=== PATIENT | female | born 1950 ===

== ENCOUNTER → 2020-08-20 14:24 | Outpatient (CLI) | payer OTHER, SELFPAY ==
--- NOTE | ~2020-08-20 | MR_ITS ---
EXAMINATION: MR brain/brain stem wo/w con DATE: 08/20/2020 15:14 INDICATION: Left facial weakness. TECHNIQUE: Magnetic resonance imaging (MRI) of the brain and brainstem was performed without and with 20 mL MultiHance intravenous contrast. Sequences included sagittal and axial T1-weighted FSE, axial diffusion-weighted FS EPI, axial T2*-weighted GRE, axial T2-weighted FLAIR Propeller, and axial T2-we ighted Propeller. Postcontrast sequences included axial and coronal T1-weighted FSE. Apparent diffusi on coefficient (ADC) maps were created. COMPARISON: None. FINDINGS: There are scattered areas of nonspecific increased T2-weighted signal intensity in the cere bral white matter, which is within normal limits for the patient's age. There is no intracranial hemo rrhage, acute infarction, or abnormal intracranial mass lesion. The ventricles are normal in size. Th e paranasal sinuses are clear. The orbits are normal. The mastoid air cells are normal. IMPRESSION: 1. Normal aging brain. Reviewed, dictated and finalized at location A. IMPRESSION: 1. Normal aging brain.
[2020-08-20 15:02] LABS: Estimated Glomerular Filt Rate > 60
== END ==
PROVIDERS: PCP Student in an Organized Health Care Education/Training Program; Visit Provider Student in an Organized Health Care Education/Training Program
DX: R29.810 Facial weakness (principal); H93.12 Tinnitus, left ear; R25.9 Unspecified abnormal involuntary movements
CPT/HCPCS: 70553; A9577

== ENCOUNTER 2020-08-24 16:18 | Outpatient (CLI) | payer OTHER, SELFPAY ==
--- NOTE | ~2020-08-24 | US_ITS ---
EXAMINATION: US carotid duplex BI DATE: 08/24/2020 16:58 INDICATION: Left facial weakness TECHNIQUE: Grayscale, color Doppler, and pulsed Doppler images of the cervical carotid arteries were obtained. The degree of vessel stenosis is placed in one of the following categories: normal, <50%, 5 0-69%, >=70% but less than near-occlusion, near-occlusion, or total occlusion. Note that percent sten osis relative to normal distal artery lumen diameter is indirectly measured from velocity measurement s as described by Alf, et al. Radiology 2003; [id number]:[id number]. COMPARISON: None. FINDINGS: RIGHT: The right common carotid artery (CCA) peak systolic velocity (PSV) is 117 cm/s. The right internal ca rotid artery (ICA) PSV is 96 cm/s. The right ICA end-diastolic velocity (EDV) is 27 cm/s. The right I CA/CCA PSV ratio is 0.8. Grayscale and color Doppler images yield an estimate of less than 50% diamet er reduction from plaque in the ICA. The external carotid artery (ECA) PSV is 53 cm/s. There is anteg rade flow in the right vertebral artery. LEFT: The left CCA PSV is 91 cm/s. The left ICA PSV is 95 cm/s. The left ICA EDV is 36 cm/s. The left ICA/C CA PSV ratio is 1.0. Grayscale and color Doppler images yield an estimate of less than 50% diameter r eduction from plaque in the ICA. The ECA PSV is 122 cm/s. There is antegrade flow in the left vertebr al artery. IMPRESSION: 1. <50% stenosis in the right internal carotid artery. 2. <50% stenosis in the left internal carotid artery. Reviewed, dictated and finalized at location A.
== END 2020-08-24 16:19 | disposition home or self-care (01) ==
PROVIDERS: PCP Student in an Organized Health Care Education/Training Program; Visit Provider Student in an Organized Health Care Education/Training Program
DX: M54.2 Cervicalgia (principal); G89.29 Other chronic pain; R29.810 Facial weakness
CPT/HCPCS: 93880

== ENCOUNTER → 2022-12-10 09:42 | Outpatient (CLI) | payer OTHER, SELFPAY ==
--- NOTE | ~2022-12-10 | XR_ITS ---
EXAM: XR sacroiliac joints min 3V DATE: 12/10/2022 10:59 HISTORY: M19.90 - Unspecified osteoarthritis, unspecified site . COMPARISON: None available. FINDINGS: Severe degenerative disc disease in the lower lumbar spine. Moderate narrowing and scleros is of the bilateral SI joints. Chronic changes are worse in the left SI joint. No lytic or blastic le sions. Degenerative changes in the pubic symphysis and bilateral hips. IMPRESSION: Moderate bilateral sacroiliitis, worse on the left. Mild bilateral hip osteoarthritis. Reviewed, dictated and finalized at location K. 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
--- NOTE | ~2022-12-10 | XR_ITS ---
EXAM: XR knee RT min 4V DATE: 12/10/2022 10:59 HISTORY: M19.90 - Unspecified osteoarthritis, unspecified site . COMPARISON: 12/19/2014. FINDINGS: Normal mineralization. No fracture or dislocation. No lytic or blastic lesion. Moderate me dial and lateral joint space narrowing. Mild tricompartment osteophytosis. No erosion or periosteal c hange. Soft tissues within normal limits. IMPRESSION: Moderate tricompartmental right knee osteoarthritis. Reviewed, dictated and finalized at location K. 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
--- NOTE | ~2022-12-10 | XR_ITS ---
EXAM: XR hand BI arthritis min 3V DATE: 12/10/2022 10:59 HISTORY: M19.90 - Unspecified osteoarthritis, unspecified site . COMPARISON: None available. FINDINGS: Decreased mineralization. No fracture or dislocation. No lytic or blastic lesion. Moderate osteoarthritic change at the left trapezium metacarpal joint and left third PIP joint, with milder o steoarthritic changes in the remaining interphalangeal joints of the thumbs and fingers. Presumed pos ttraumatic deformity in the right ulnar styloid. No erosion or periosteal change. Soft tissues within normal limits. IMPRESSION: Polyarticular osteoarthritis of the hands. Reviewed, dictated and finalized at location K. STICKER
--- NOTE | ~2022-12-10 | XR_ITS ---
EXAMINATION: XR knee LT min 4V DATE: 12/10/2022 10:59 INDICATION: Unspecified osteoarthritis, unspecified site. TECHNIQUE: 4 views of left knee including standing views were obtained. COMPARISON: None. FINDINGS: Bone alignment is normal. No fracture. There is mild tricompartmental osteoarthritis. No kn ee joint effusion. IMPRESSION: 1. Mild left knee osteoarthritis. Reviewed, dictated and finalized at location A. [employer]VIEW[employer]
== END ==
PROVIDERS: PCP Student in an Organized Health Care Education/Training Program; Visit Provider Internal Medicine
DX: M19.041 Primary osteoarthritis, right hand (principal); M19.042 Primary osteoarthritis, left hand; M53.3 Sacrococcygeal disorders, not elsewhere classified; M16.0 Bilateral primary osteoarthritis of hip; Z71.89 Other specified counseling; Z79.899 Other long term (current) drug therapy; M17.0 Bilateral primary osteoarthritis of knee
CPT/HCPCS: 72202; 73130; 73564

== ENCOUNTER → 2023-03-16 14:20 | Outpatient (CLI) | payer OTHER, SELFPAY ==
--- NOTE | ~2023-03-16 | MR_ITS ---
EXAMINATION: MRI SACRUM W/O CONTRAST DATE: 03/16/2023 15:40 INDICATION: Unspecified polyarticular osteoarthritis with chronic progressive low back pain TECHNIQUE: Magnetic resonance imaging (MRI) of the sacroiliac joints was performed without and with 1 5 mL Multihance intravenous contrast. Sequences included sagittal PD-weighted FSE; oblique axial T1- weighted FSE, T2-weighted FS FSE and postcontrast T1-weighted FS FSE ; oblique coronal T2-weighted FS E, T1-weighted FSE, T2-weighted FS FSE, T2-weighted FSE and postcontrast T1-weighted FS FSE. COMPARISON: Radiographs dated 12/10/[address] dated 03/30/2005 FINDINGS: 5 mm retrolisthesis L2 on L3. Lumbar spondylosis with moderate disc height loss at L3-L4 and mild dis c height loss at L4-L5 and L5-S1, the former with associated annular fissure and small disc extrusion . There is severe bilateral facet osteoarthritis at L4-L5 and L5-S1. Low signal intensity along the i liac sides of the anteroinferior bilateral sacroiliac joints to correspond to dense sclerosis evident on the CT imaging from 18 years prior consistent with chronic osteitis condensans ilii. There is mod erate osteoarthritis at the bilateral sacroiliac joints. No evident enhancing erosions or synovitis t o suggest an inflammatory sacroiliitis. No fractures or pathologic marrow replacing process. 3.3 cm s ubserosal fibroid at the right side of the uterine fundus. Multiple T2 hyperintense nonenhancing nabo thian cysts at the cervix, the largest on the left measuring 1.8 cm maximal diameter. IMPRESSION: 1. 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 2. Moderate lower lumbar spondylosis including 5 mm retrolisthesis L2 on L3. 3. 3.3 cm uterine fibroid. Reviewed, dictated and finalized at location A. IMPRESSION: 1. 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 2. Moderate lower lumbar spondylosis including 5 mm retrolisthesis L2 on L3. 3. 3.3 cm uterine fibroid.
== END ==
PROVIDERS: PCP Internal Medicine; Visit Provider Internal Medicine
DX: M15.9 Polyosteoarthritis, unspecified (principal); M85.38 Osteitis condensans, other site; M47.816 Spondylosis without myelopathy or radiculopathy, lumbar region; D25.9 Leiomyoma of uterus, unspecified
CPT/HCPCS: 72197; A9577